=== PATIENT | female | born 1965 | race African-American/Black ===

== ENCOUNTER 2018-12-15 09:27 | Inpatient (IN) | payer OTHER ==
[2018-12-15] MEDS ORDERED: HYDROmorphONE 0.5 MG/0.5 ML SYG IM (11:01)
[2018-12-15] MEDS ORDERED: ONDANSETRON 4 MG INJ IV (11:30)
[2018-12-15] MEDS: DIPHENHYDRAMINE 50 MG INJ IV (13:02)
[2018-12-15] MEDS: HYDROmorphONE 0.5 MG/0.5 ML SYG IV (13:03)
[2018-12-15] MEDS: DEXTROSE 5%-0.45% NACL 1,000 ML IV (13:03)
[2018-12-15] MEDS: DOCUSATE SODIUM 100 MG CAP PO (13:08)
[2018-12-15] MEDS: POLYETHYLENE GLYCOL 17 GM PACKET PO (13:08)
[2018-12-15 14:31] LABS: INR 0.89; PROTIME 12.2 Sec (11.9-14.9)
[2018-12-15 14:32] LABS: PHOSPHORUS 5.2 mg/dl (2.5-4.9)
[2018-12-15 14:32] LABS: MAGNESIUM 1.7 mg/dl (1.7-2.5); PARTIAL THROMBOPLASTIN TIME 28.7 Sec (23.0-35.0)
[2018-12-15 15:04] LABS: HEPATITIS B SURFACE ANTIGEN NEGATIVE (NEGATIVE)
[2018-12-15 15:21] LABS: HEPATITIS C VIRAL ANTIBODY NEGATIVE (NEGATIVE)
[2018-12-15 15:22] LABS: HEPATITIS B SURFACE ANTIBODY NEGATIVE (NEGATIVE)
[2018-12-15] MEDS: HYDROCORTISONE 25 MG SUPP PR (21:32)
[2018-12-15] MEDS: FAMOTIDINE 20 MG TAB PO (21:32)
[2018-12-16] MEDS: DEXTROSE 5%-0.45% NACL 1,000 ML IV (02:49)
[2018-12-16 06:08] LABS: ADD MAN DIFF? NO
[2018-12-16 06:15] LABS: WHITE BLOOD COUNT 4.6 10^3/ul (4.8-10.8)
[2018-12-16 06:15] LABS: BASOPHILS % 0.7 % (0.0-2.0); EOSINOPHILS # 0.1 10^3/ul (0.0-0.5); HEMATOCRIT 24.5 % (37.0-47.0); LYMPHOCYTES # 1.9 10^3/ul (0.8-2.9); LYMPHOCYTES % 42.1 % (15.0-51.0); MEAN CORPUSCULAR HGB CONC 32.7 g/dl (32.0-37.0); MEAN PLATELET VOLUME 9.8 fl (7.4-10.4); MONOCYTE # 0.4 10^3/ul (0.3-0.9); MONOCYTES % 9.1 % (0.0-11.0); NEUTROPHIL # 2.1 10^3/ul (1.6-7.5); NEUTROPHILS % 44.9 % (39.0-77.0); PLATELET COUNT 484 10^3/UL (140-415); RED BLOOD COUNT 2.58 10^6/ul (4.20-5.40); RED CELL DISTRIBUTION WIDTH 15.5 % (11.5-14.5)
[2018-12-16 06:39] LABS: ANION GAP 13 (5-13); BLOOD UREA NITROGEN 12 mg/dl (7-20); CALCIUM 9.2 mg/dl (8.4-10.2); CARBON DIOXIDE 28 mmol/L (21-31); CHLORIDE 103 mmol/L (97-110); Estimated GFR > 60 mL/min (>60); GLUCOSE 108 mg/dl (70-220); POTASSIUM 3.2 mmol/L (3.5-5.1); SODIUM 144 mmol/L (135-144)
[2018-12-16] MEDS: HYDROmorphONE 0.5 MG/0.5 ML SYG IV ×4 (08:50→20:59)
[2018-12-16] MEDS: DOCUSATE SODIUM 100 MG CAP PO (08:52)
[2018-12-16] MEDS: FAMOTIDINE 20 MG TAB PO ×2 (08:53→20:56)
[2018-12-16] MEDS: POLYETHYLENE GLYCOL 17 GM PACKET PO (08:53)
[2018-12-16] MEDS: HYDROCORTISONE 25 MG SUPP PR ×3 (08:53→23:43)
[2018-12-16] MEDS: POTASSIUM CHLORIDE (SR) 20 MEQ TAB PO (23:41)
[2018-12-17] MEDS: HYDROmorphONE 0.5 MG/0.5 ML SYG IV ×4 (06:14→20:40)
[2018-12-17 06:20] LABS: ADD MAN DIFF? NO
[2018-12-17 06:26] LABS: WHITE BLOOD COUNT 5.3 10^3/ul (4.8-10.8)
[2018-12-17 06:26] LABS: BASOPHILS % 0.6 % (0.0-2.0); EOSINOPHILS # 0.2 10^3/ul (0.0-0.5); EOSINOPHILS % 3.6 % (0.0-7.0); HEMATOCRIT 24.1 % (37.0-47.0); HEMOGLOBIN 7.9 g/dl (12.0-16.0); LYMPHOCYTES # 1.8 10^3/ul (0.8-2.9); LYMPHOCYTES % 34.2 % (15.0-51.0); MEAN CORPUSCULAR HGB CONC 32.8 g/dl (32.0-37.0); MEAN CORPUSCULAR VOLUME 94.5 fl (82.0-101.0); MEAN PLATELET VOLUME 9.9 fl (7.4-10.4); MONOCYTE # 0.4 10^3/ul (0.3-0.9); MONOCYTES % 7.1 % (0.0-11.0); NEUTROPHIL # 2.9 10^3/ul (1.6-7.5); NEUTROPHILS % 53.9 % (39.0-77.0); PLATELET COUNT 489 10^3/UL (140-415); RED BLOOD COUNT 2.55 10^6/ul (4.20-5.40); RED CELL DISTRIBUTION WIDTH 15.4 % (11.5-14.5)
[2018-12-17 07:00] LABS: ALANINE AMINOTRANSFERASE 24 IU/L (13-69); ALBUMIN 3.7 g/dl (3.3-4.9); ALBUMIN/GLOBULIN RATIO 1.05; ALKALINE PHOSPHATASE 117 IU/L (42-121); ANION GAP 10 (5-13); ASPARTATE AMINO TRANSFERASE 39 IU/L (15-46); BILIRUBIN,INDIRECT 0.5 mg/dl (0-1.1); BILIRUBIN,TOTAL 0.5 mg/dl (0.2-1.3); BLOOD UREA NITROGEN 6 mg/dl (7-20); CALCIUM 9.9 mg/dl (8.4-10.2); CARBON DIOXIDE 27 mmol/L (21-31); CHLORIDE 107 mmol/L (97-110); CREATININE 0.72 mg/dl (0.44-1.00); Estimated GFR > 60 mL/min (>60); GLUCOSE 92 mg/dl (70-220); POTASSIUM 3.7 mmol/L (3.5-5.1); SODIUM 144 mmol/L (135-144); TOTAL PROTEIN 7.2 g/dl (6.1-8.1)
[2018-12-17] MEDS: POLYETHYLENE GLYCOL 17 GM PACKET PO (08:59)
[2018-12-17] MEDS: FAMOTIDINE 20 MG TAB PO ×2 (08:59→20:43)
[2018-12-17] MEDS: HYDROCORTISONE 25 MG SUPP PR ×2 (08:59→22:03)
[2018-12-17] MEDS ORDERED: DOCUSATE SODIUM 250 MG CAP PO (09:00)
[2018-12-17] MEDS ORDERED: MAGNESIUM SULFATE 454 GM JAR TOP (11:00)
[2018-12-17] MEDS ORDERED: IBUPROFEN 600 MG TAB PO (12:00)
[2018-12-17] MEDS: DOCUSATE SODIUM 10 MG/ML (10ML CUP) PO (12:00)
[2018-12-17] MEDS: IBUPROFEN 600 MG TAB PO (12:01)
[2018-12-17] MEDS: HYDROmorphONE 1 MG/ML SYG IV (13:28)
[2018-12-17] MEDS: LIDOCAINE 5% 35 GM OINT TOP (15:34)
[2018-12-17] MEDS ORDERED: traMADol-APAP 37.5-325 1 TAB PO (16:00)
[2018-12-17] MEDS ORDERED: ZINC OXIDE 13% (DESITIN) CREAM 2 OZ TUBE TOP (16:00)
[2018-12-17] MEDS: SKIN RESP FACT/SHARK/PH MERCU SUPP PR (18:57)
[2018-12-17] MEDS: HEPARIN 5,000 UNIT/1 ML VIAL SC (20:39)
[2018-12-18] MEDS: HYDROmorphONE 0.5 MG/0.5 ML SYG IV ×4 (00:59→20:27)
[2018-12-18] MEDS: SKIN RESP FACT/SHARK/PH MERCU SUPP PR ×3 (00:59→16:32)
[2018-12-18] MEDS: traMADol-APAP 37.5-325 1 TAB PO ×3 (03:42→21:12)
[2018-12-18 05:14] LABS: ADD MAN DIFF? NO
[2018-12-18 05:18] LABS: WHITE BLOOD COUNT 5.5 10^3/ul (4.8-10.8)
[2018-12-18 05:18] LABS: BASOPHILS % 0.5 % (0.0-2.0); EOSINOPHILS # 0.2 10^3/ul (0.0-0.5); EOSINOPHILS % 3.8 % (0.0-7.0); HEMATOCRIT 23.3 % (37.0-47.0); LYMPHOCYTES # 2.2 10^3/ul (0.8-2.9); MEAN CORPUSCULAR HEMOGLOBIN 31.5 pg (29.0-33.0); MEAN CORPUSCULAR HGB CONC 34.3 g/dl (32.0-37.0); MEAN CORPUSCULAR VOLUME 91.7 fl (82.0-101.0); MEAN PLATELET VOLUME 10.2 fl (7.4-10.4); MONOCYTE # 0.4 10^3/ul (0.3-0.9); MONOCYTES % 7.7 % (0.0-11.0); NEUTROPHIL # 2.6 10^3/ul (1.6-7.5); NEUTROPHILS % 47.8 % (39.0-77.0); PLATELET COUNT 452 10^3/UL (140-415); RED BLOOD COUNT 2.54 10^6/ul (4.20-5.40)
[2018-12-18 05:56] LABS: ANION GAP 10 (5-13); BLOOD UREA NITROGEN 7 mg/dl (7-20); CALCIUM 9.8 mg/dl (8.4-10.2); CARBON DIOXIDE 26 mmol/L (21-31); CHLORIDE 106 mmol/L (97-110); CREATININE 0.71 mg/dl (0.44-1.00); Estimated GFR > 60 mL/min (>60); GLUCOSE 89 mg/dl (70-220); POTASSIUM 3.2 mmol/L (3.5-5.1); SODIUM 142 mmol/L (135-144)
[2018-12-18] MEDS: HYDROCORTISONE 25 MG SUPP PR ×2 (09:50→20:25)
[2018-12-18] MEDS: HEPARIN 5,000 UNIT/1 ML VIAL SC ×2 (09:52→20:24)
[2018-12-18] MEDS: FAMOTIDINE 20 MG TAB PO ×2 (09:53→20:20)
[2018-12-18] MEDS: POLYETHYLENE GLYCOL 17 GM PACKET PO (09:53)
[2018-12-18] MEDS: POTASSIUM CHLORIDE (SR) 20 MEQ TAB PO ×2 (09:53→16:32)
[2018-12-18] MEDS: ACETAMINOPHEN 325 MG TAB PO (12:13)
[2018-12-18] MEDS ORDERED: MAGNESIUM SULFATE 454 GM JAR TOP (13:30)
[2018-12-18 15:59] LABS: IRON 49 ug/dl (35-150)
[2018-12-18 16:08] LABS: % IRON SATURATION 14 % SAT (22-52); TOTAL IRON BINDING CAPACITY 357 ug/dl (241-421)
[2018-12-18] MEDS: SOD FERRIC GLUC COMPLX 125 MG in SOD CHLORIDE 0.9% 100 ML IVPB (17:18)
[2018-12-18] MEDS: IBUPROFEN 600 MG TAB PO (17:19)
[2018-12-18] MEDS: ZOLPIDEM 5 MG TAB PO (23:27)
[2018-12-19] MEDS: SKIN RESP FACT/SHARK/PH MERCU SUPP PR ×2 (01:24→09:16)
[2018-12-19] MEDS: HYDROmorphONE 0.5 MG/0.5 ML SYG IV ×2 (05:49→10:08)
[2018-12-19] MEDS: POLYETHYLENE GLYCOL 17 GM PACKET PO (09:15)
[2018-12-19] MEDS: IBUPROFEN 600 MG TAB PO ×2 (09:15→12:26)
[2018-12-19] MEDS: FAMOTIDINE 20 MG TAB PO (09:16)
[2018-12-19] MEDS: HYDROCORTISONE 25 MG SUPP PR (09:16)
[2018-12-19] MEDS: DOCUSATE SODIUM 10 MG/ML (10ML CUP) PO (09:16)
[2018-12-19] MEDS: HEPARIN 5,000 UNIT/1 ML VIAL SC (09:21)
[2018-12-19] MEDS: SOD FERRIC GLUC COMPLX 125 MG in SOD CHLORIDE 0.9% 100 ML IVPB (12:26)
== END 2018-12-19 14:29 | disposition home or self-care (01) | DRG 395 ==
LOC: PP2 09:27
PROVIDERS: Internal Medicine
DX: K64.4 Residual hemorrhoidal skin tags (principal); I10 Essential (primary) hypertension; K62.2 Anal prolapse; D50.9 Iron deficiency anemia, unspecified; E87.6 Hypokalemia; K59.03 Drug induced constipation; T40.2X5A Adverse effect of other opioids, initial encounter; S82.891D Other fracture of right lower leg, subsequent encounter for closed fracture with routine healing; W19.XXXD Unspecified fall, subsequent encounter
CPT/HCPCS: 80048; 80053; 82607; 83540; 83735; 84100; 85025; 85610; 85730; 86706; 86803; 87081; 87340; 87522

== ENCOUNTER 2019-01-04 17:24 | Inpatient (IN) | payer OTHER ==
[2019-01-04 18:21] LABS: HEMOGLOBIN 11.3 g/dl (12.0-16.0); MEAN CORPUSCULAR HEMOGLOBIN 29.4 pg (29.0-33.0); MEAN CORPUSCULAR HGB CONC 33.2 g/dl (32.0-37.0); MEAN CORPUSCULAR VOLUME 88.3 fl (82.0-101.0); MEAN PLATELET VOLUME 10.9 fl (7.4-10.4); PLATELET COUNT 343 10^3/UL (140-415); RED BLOOD COUNT 3.85 10^6/ul (4.20-5.40); RED CELL DISTRIBUTION WIDTH 14.8 % (11.5-14.5)
[2019-01-04 18:31] LABS: ADD MAN DIFF? YES
[2019-01-04 18:39] LABS: ALANINE AMINOTRANSFERASE 15 IU/L (13-69); ALBUMIN 4.8 g/dl (3.3-4.9); ALBUMIN/GLOBULIN RATIO 1.14; ALKALINE PHOSPHATASE 110 IU/L (42-121); ANION GAP 12 (5-13); ASPARTATE AMINO TRANSFERASE 29 IU/L (15-46); BILIRUBIN,INDIRECT 0.6 mg/dl (0-1.1); BILIRUBIN,TOTAL 0.6 mg/dl (0.2-1.3); BLOOD UREA NITROGEN 20 mg/dl (7-20); CALCIUM 10.6 mg/dl (8.4-10.2); CARBON DIOXIDE 27 mmol/L (21-31); CHLORIDE 103 mmol/L (97-110); CREATININE 0.88 mg/dl (0.44-1.00); Estimated GFR > 60 mL/min (>60); GLUCOSE 130 mg/dl (70-220); POTASSIUM 3.2 mmol/L (3.5-5.1); SODIUM 142 mmol/L (135-144)
[2019-01-04] MEDS: CEFAZOLIN 2 GM/50 ML (PMX) 50 ML IVPB (18:43)
[2019-01-04] MEDS: D5W-0.45 NACL + KCL 20 MEQ 1,000 ML IV (18:44)
[2019-01-04 18:53] LABS: INR 0.94; PROTIME 12.7 Sec (11.9-14.9)
[2019-01-04 18:54] LABS: PARTIAL THROMBOPLASTIN TIME 29.1 Sec (23.0-35.0)
[2019-01-04] MEDS: HYDROmorphONE 0.5 MG/0.5 ML SYG IV (18:56)
[2019-01-04] MEDS ORDERED: ONDANSETRON 4 MG INJ IV (19:30)
[2019-01-04] MEDS ORDERED: morphine 2 MG INJ IV (20:00)
[2019-01-04] MEDS ORDERED: ACETAMINOPHEN 325 MG TAB PO (20:00)
[2019-01-04] MEDS ORDERED: ONDANSETRON 4 MG TAB PO (20:00)
[2019-01-04] MEDS ORDERED: NACL 0.9% 3 ML SYG IV (20:00)
[2019-01-04] MEDS ORDERED: DOCUSATE SODIUM 100 MG CAP PO (20:00)
[2019-01-04] MEDS ORDERED: BISACODYL (EC) 5 MG TAB PO (20:00)
[2019-01-04] MEDS: POTASSIUM CHLORIDE (SR) 20 MEQ TAB PO (20:16)
[2019-01-04] MEDS: ACETAMINOPHEN 325 MG TAB PO (20:16)
[2019-01-04 21:12] LABS: BASOPHILS % (M) 1 % (0-2); GIANT THROMBO% (M) 1 % (0-0); LYMPHOCYTES #M 2.6 10^3/ul (0.8-2.9); LYMPHOCYTES % (M) 53 % (15-51); MONOCYTE #M 0.1 10^3/ul (0.3-0.9); MONOCYTES % (M) 3 % (0-11); PLATELET ESTIMATE NORMAL; REACTIVE LYMPHOCYTES #M 0.1 10^3/ul (0.0-0.0); REACTIVE LYMPHOCYTES% (M) 2 % (0-0); SEGMENTED NEUTROPHILS (M) % 41 % (39-77); SMUDGE%M 4 % (0-0)
[2019-01-05] MEDS: traZODone 50 MG TAB PO (01:48)
[2019-01-05 05:52] LABS: ADD MAN DIFF? NO
[2019-01-05 06:04] LABS: BASOPHILS % 0.4 % (0.0-2.0); EOSINOPHILS # 0.2 10^3/ul (0.0-0.5); EOSINOPHILS % 3.4 % (0.0-7.0); HEMATOCRIT 29.2 % (37.0-47.0); HEMOGLOBIN 9.6 g/dl (12.0-16.0); LYMPHOCYTES # 2.8 10^3/ul (0.8-2.9); LYMPHOCYTES % 56.2 % (15.0-51.0); MEAN CORPUSCULAR HEMOGLOBIN 29.1 pg (29.0-33.0); MEAN CORPUSCULAR HGB CONC 32.9 g/dl (32.0-37.0); MEAN CORPUSCULAR VOLUME 88.5 fl (82.0-101.0); MONOCYTE # 0.3 10^3/ul (0.3-0.9); MONOCYTES % 6.5 % (0.0-11.0); NEUTROPHIL # 1.7 10^3/ul (1.6-7.5); NEUTROPHILS % 33.3 % (39.0-77.0); PLATELET COUNT 316 10^3/UL (140-415); RED CELL DISTRIBUTION WIDTH 14.8 % (11.5-14.5)
[2019-01-05 06:22] LABS: ALANINE AMINOTRANSFERASE 24 IU/L (13-69); ALBUMIN 3.9 g/dl (3.3-4.9); ALBUMIN/GLOBULIN RATIO 1.11; ALKALINE PHOSPHATASE 90 IU/L (42-121); ANION GAP 12 (5-13); ASPARTATE AMINO TRANSFERASE 33 IU/L (15-46); BILIRUBIN,INDIRECT 0.3 mg/dl (0-1.1); BILIRUBIN,TOTAL 0.3 mg/dl (0.2-1.3); BLOOD UREA NITROGEN 18 mg/dl (7-20); CALCIUM 9.6 mg/dl (8.4-10.2); CARBON DIOXIDE 24 mmol/L (21-31); CHLORIDE 106 mmol/L (97-110); CHOL/HDL RATIO 3.3 RATIO; CHOLESTEROL 166 mg/dl (100-200); CREATININE 0.78 mg/dl (0.44-1.00); Estimated GFR > 60 mL/min (>60); GLUCOSE 89 mg/dl (70-220); HDL CHOLESTEROL 49 mg/dl (37-92); LDL CHOLESTEROL,CALCULATED 91 mg/dl; MAGNESIUM 1.9 mg/dl (1.7-2.5); POTASSIUM 3.9 mmol/L (3.5-5.1); SODIUM 142 mmol/L (135-144); TOTAL PROTEIN 7.4 g/dl (6.1-8.1); TRIGLYCERIDES 131 mg/dl (0-149)
[2019-01-05 06:53] LABS: IRON 62 ug/dl (35-150)
[2019-01-05] MEDS ORDERED: SUCCINYLCHOLINE CHLORIDE 100 MG/5 ML SYG IV (07:00)
[2019-01-05] MEDS ORDERED: EPHEDrine 25 MG/5 ML SYG (07:00)
[2019-01-05 07:02] LABS: % IRON SATURATION 17 % SAT (22-52); TOTAL IRON BINDING CAPACITY 371 ug/dl (241-421)
[2019-01-05] MEDS: DOCUSATE SODIUM 100 MG CAP PO ×2 (09:10→21:00)
[2019-01-05] MEDS: DULOXETINE 30 MG CAP DR PO (09:11)
[2019-01-05] MEDS: LOSARTAN 50 MG TAB PO (09:12)
[2019-01-05] MEDS: SOD CHLORIDE 0.9% 1,000 ML IV (09:12)
[2019-01-05] MEDS: HYDROCODONE/APAP (5/325) TAB PO (09:16)
[2019-01-05] MEDS ORDERED: PROPOFOL 20 ML (20:10)
[2019-01-05] MEDS ORDERED: LIDOCAINE 1% (MDV) 20 ML INJ (20:10)
[2019-01-05] MEDS ORDERED: MIDAZOLAM 1 MG/ML 2 ML INJ (20:10)
[2019-01-05] MEDS ORDERED: ROCURONIUM 50 MG INJ ×2 (20:10→20:49)
[2019-01-05] MEDS ORDERED: HYDROmorphONE 1 MG/5 ML IV SYRINGE IV ×2 (20:30)
[2019-01-05] MEDS ORDERED: hydrALAzine 20 MG INJ IV (20:30)
[2019-01-05] MEDS ORDERED: LABETALOL HCL 20MG INJ IV (20:30)
[2019-01-05] MEDS ORDERED: CEFAZOLIN 1 GM INJ (20:46)
[2019-01-05] MEDS ORDERED: ONDANSETRON 4 MG INJ (20:52)
[2019-01-05] MEDS ORDERED: DEXAMETHASONE 4 MG/ML 5 ML INJ ×2 (20:52→22:57)
[2019-01-05] MEDS: BACITRACIN/POLYMYXIN 28.35 GM OINT TOP (21:16)
[2019-01-05] MEDS: POLYMYXIN/BACITRACIN 1L IRRIG (21:18)
[2019-01-05] MEDS ORDERED: ROPIVACAINE 0.5 % 30 ML VIAL (22:57)
[2019-01-05] MEDS ORDERED: ROPIVACAINE 0.2% 20 ML VIAL (23:38)
[2019-01-05] MEDS ORDERED: SUGAMMADEX SODIUM 200 MG/2 ML VIAL IV (23:44)
[2019-01-06] MEDS ORDERED: CEFAZOLIN 1 GM/50 ML (PMX) 50 ML IVPB
[2019-01-06] MEDS ORDERED: ONDANSETRON 4 MG INJ IV
[2019-01-06] MEDS ORDERED: MAGNESIUM HYDROXIDE 30ML CUP PO
[2019-01-06] MEDS ORDERED: CEFAZOLIN 1 GM INJ IV
[2019-01-06] MEDS ORDERED: CHOLECALCIFEROL 2,000 UNIT CAP PO
[2019-01-06] MEDS ORDERED: morphine 10 MG INJ IV
[2019-01-06] MEDS: ONDANSETRON 4 MG INJ IV (00:04)
[2019-01-06] MEDS: SOD CHLORIDE 0.9% 1,000 ML IV ×2 (00:07→13:11)
[2019-01-06] MEDS: HYDROmorphONE 1 MG/5 ML IV SYRINGE IV (01:03)
[2019-01-06] MEDS: ERGOCALCIFEROL 50,000 UNIT CAP PO (01:24)
[2019-01-06] MEDS: OXYCODONE/ACETAMINOPHEN (5/325) TAB PO ×4 (03:34→18:14)
[2019-01-06] MEDS: CEFAZOLIN 1 GM/50 ML (PMX) 50 ML IVPB ×3 (05:21→21:14)
[2019-01-06] MEDS: DULOXETINE 30 MG CAP DR PO (08:57)
[2019-01-06] MEDS: SENNA/DOCUSATE NA (8.6MG/50MG) TAB PO ×2 (08:58→21:13)
[2019-01-06] MEDS: DOCUSATE SODIUM 100 MG CAP PO ×2 (08:58→21:13)
[2019-01-06] MEDS: ASCORBIC ACID 500 MG TAB PO (08:58)
[2019-01-06] MEDS: LOSARTAN 50 MG TAB PO (08:58)
[2019-01-06] MEDS ORDERED: ASCORBIC ACID 500 MG TAB.CHEW PO (09:00)
[2019-01-06] MEDS: HYDROmorphONE 0.5 MG/0.5 ML SYG IV ×2 (09:03→19:39)
[2019-01-06] MEDS: DIPHENHYDRAMINE 25 MG CAP PO ×2 (10:42→18:14)
[2019-01-06] MEDS: RIVAROXABAN 10 MG TABLET PO (18:15)
[2019-01-06] MEDS ORDERED: HYDROmorphONE 0.5 MG/0.5 ML SYG IV (20:34)
[2019-01-06] MEDS ORDERED: DIPHENHYDRAMINE 50 MG INJ (20:55)
[2019-01-06] MEDS: HYDROCODONE/APAP (10/325) TAB PO (21:24)
[2019-01-06] MEDS: DIPHENHYDRAMINE 50 MG INJ IV (21:27)
[2019-01-06] MEDS: LORAZEPAM 2 MG INJ IV (23:02)
[2019-01-07] MEDS: DIPHENHYDRAMINE 25 MG CAP PO (00:17)
[2019-01-07] MEDS: OXYCODONE/ACETAMINOPHEN (5/325) TAB PO ×6 (00:20→22:14)
[2019-01-07] MEDS: CEFAZOLIN 1 GM/50 ML (PMX) 50 ML IVPB ×3 (04:55→21:03)
[2019-01-07] MEDS: DULOXETINE 30 MG CAP DR PO (09:31)
[2019-01-07] MEDS: ASCORBIC ACID 500 MG TAB PO (09:31)
[2019-01-07] MEDS: DOCUSATE SODIUM 100 MG CAP PO ×2 (09:31→21:03)
[2019-01-07] MEDS: SENNA/DOCUSATE NA (8.6MG/50MG) TAB PO ×2 (09:31→21:03)
[2019-01-07] MEDS: LOSARTAN 50 MG TAB PO (09:32)
[2019-01-07] MEDS: RIVAROXABAN 10 MG TABLET PO (18:07)
[2019-01-08] MEDS: OXYCODONE/ACETAMINOPHEN (5/325) TAB PO (05:40)
[2019-01-08] MEDS: ASCORBIC ACID 500 MG TAB PO (08:49)
[2019-01-08] MEDS: DULOXETINE 30 MG CAP DR PO (08:49)
[2019-01-08] MEDS: LOSARTAN 50 MG TAB PO (08:50)
[2019-01-08] MEDS: SENNA/DOCUSATE NA (8.6MG/50MG) TAB PO (08:50)
[2019-01-08] MEDS: DOCUSATE SODIUM 100 MG CAP PO (08:50)
== END 2019-01-08 14:15 | disposition home health service (06) | DRG 494 ==
LOC: E/R 17:24 → MS1 19:01
PROC: 0QSG04Z Reposition Right Tibia with Internal Fixation Device, Open Approach (ICD-10-PCS; principal; 2019-01-05 20:17)
PROC: 0QSJ04Z Reposition Right Fibula with Internal Fixation Device, Open Approach (ICD-10-PCS; 2019-01-05 20:17)
DX: S82.871A Displaced pilon fracture of right tibia, initial encounter for closed fracture (principal); S82.831A Other fracture of upper and lower end of right fibula, initial encounter for closed fracture; E87.6 Hypokalemia; I10 Essential (primary) hypertension; D64.9 Anemia, unspecified; X58.XXXA Exposure to other specified factors, initial encounter
CPT/HCPCS: 36415; 71045; 73610-RT; 80053; 80061; 82306; 82728; 83036; 83540; 83735; 84443; 85025; 85610; 85730; 87081; 93005; 96374; 96375; 97110; 97116; 97161; 97530; 99285-25

== ENCOUNTER 2019-02-16 08:43 | Day surgery (SDC) | payer OTHER ==
[2019-02-16] MEDS ORDERED: MIDAZOLAM 1 MG/ML 2 ML INJ ×2 (11:53)
[2019-02-16] MEDS ORDERED: FENTAnyl 50 MCG/ML VIAL (11:53)
== END 2019-02-16 13:42 | disposition home or self-care (01) ==
LOC: GIL 08:43
DX: Z12.11 Encounter for screening for malignant neoplasm of colon (principal); D12.4 Benign neoplasm of descending colon; K57.30 Diverticulosis of large intestine without perforation or abscess without bleeding; K64.8 Other hemorrhoids; I10 Essential (primary) hypertension
CPT/HCPCS: 45380; 88305